=== PATIENT | female | born 1995 | race Two or more races ===

== ENCOUNTER 2024-11-11 18:06 | Emergency (ER) | payer OTHER ==
[~2024-11-11] VITALS: Ht 160 cm; Wt 56.7 kg
[2024-11-11] MEDS ORDERED: FAMOtidine 10 MG/ML (4ML VIAL) IV ONE (18:45)
[2024-11-11] MEDS ORDERED: ACETAMINOPHEN 325 MG TABLET PO ONE (18:45)
[2024-11-11] MEDS ORDERED: ONDANSETRON HCL 2 MG/ML VIAL IV ONE (18:45)
[2024-11-11] MEDS ORDERED: 0.9 % SODIUM CHLORIDE 1,000 ML IV ONE (18:45)
[2024-11-11] MEDS ORDERED: ACETAMINOPHEN 500 MG GEL..CAP PO ONE (19:02)
[2024-11-11] MEDS ORDERED: ONDANSETRON HCL 2 MG/ML VIAL ONE (19:02)
[2024-11-11] MEDS ORDERED: FAMOTIDINE/PF 20 MG/2 ML VIAL ONE (19:02)
[2024-11-11 19:36] LABS: HEMATOCRIT 37.7 % (36.0-45.00); MEAN CELL VOLUME 87.3 fL (80.00-100.00); MEAN CORPUSCULAR HEMOGLOBIN 30.1 pg (27.00-32.0); MEAN CORPUSCULAR HGB CONC 34.5 g/dl (32.0-36.0); PLATELET COUNT 215 K/uL (150-450); RED BLOOD COUNT 4.32 M/uL (4.00-6.00); RED CELL DISTRIBUTION WIDTH 13.6 % (11.5-14.5)
[2024-11-11] MEDS ORDERED: ZOFRAN8 MG PO (20:29)
[2024-11-11] MEDS ORDERED: PROTONIX40 MG PO (20:29)
== END 2024-11-11 21:12 | disposition home or self-care (01) ==
LOC: ER 18:07
PROVIDERS: General Practice
DX: O21.0 Mild hyperemesis gravidarum (principal); Z3A.23 23 weeks gestation of pregnancy; Z20.822 Contact with and (suspected) exposure to COVID-19; Z88.8 Allergy status to other drugs, medicaments and biological substances

== ENCOUNTER 2024-11-29 20:02 | Outpatient (CLI) | payer OTHER ==
[~2024-11-29] VITALS: Ht 154.9 cm; Wt 55.8 kg
[2024-11-29 18:59] VITALS: BP 119/80
[~2024-11-29 20:02] MED LIST: PROTONIX40 MG PO; ZOFRAN8 MG PO
[2024-11-29] MEDS ORDERED: FOLIC ACID1 MG (20:14)
[2024-11-29] MEDS ORDERED: RINGERS SOLUTION,LACTATED 1,000 ML IV SCH (20:15)
[2024-11-29] MEDS ORDERED: MAGNESIUM HYDROXIDE 30 ML BLIST.PACK PO ONE (20:15)
[2024-11-29] MEDS ORDERED: PRENATAL TABLE1 EAC1 (20:16)
[2024-11-29 23:10] VITALS: BP 107/71
[2024-11-30 03:11] VITALS: BP 96/61
[2024-11-30] MEDS ORDERED: BISACODYL 10 MG/SUPP.RECT SUPP.RECT RECTAL SCH (06:00)
[2024-11-30 06:22] VITALS: BP 96/60; O2SAT 99
[2024-11-30] MEDS ORDERED: MAGNESIUM HYDROXIDE 30 ML BLIST.PACK PO ONE (08:00)
[2024-11-30] MEDS ORDERED: LACTULOSE 20 G/30 ML BLIST.PACK PO ONE (08:00)
[2024-11-30] MEDS ORDERED: MINERAL OIL 30 ML BLIST.PACK PO ONE (08:00)
[2024-11-30 11:38] VITALS: BP 99/67
[2024-11-30 13:25] VITALS: BP 99/67
== END 2024-11-30 14:25 | disposition home or self-care (01) ==
LOC: OBS/DEL 20:02
PROVIDERS: ATTEND Obstetrics & Gynecology
DX: O26.892 Other specified pregnancy related conditions, second trimester (principal); K59.00 Constipation, unspecified; Z3A.25 25 weeks gestation of pregnancy

== ENCOUNTER 2024-12-28 12:03 | Outpatient (CLI) | payer OTHER ==
[~2024-12-28 12:03] MED LIST changes: +FOLIC ACID1 MG; +PRENATAL TABLE1 EAC1
== END 2024-12-28 12:39 | disposition home or self-care (01) ==
LOC: NST 12:03
PROVIDERS: ATTEND Obstetrics & Gynecology
DX: Z34.83 Encounter for supervision of other normal pregnancy, third trimester (principal)

== ENCOUNTER 2025-03-01 13:07 | Inpatient (IN) | payer OTHER ==
[~2025-03-01] VITALS: Ht 154.9 cm; Wt 64.0 kg
[2025-03-05 19:00] VITALS: BP 131/66
[2025-03-05] MEDS ORDERED: RINGERS SOLUTION,LACTATED 1,000 ML IV SCH (19:45)
[2025-03-05] MEDS ORDERED: MORPHINE SULFATE 4 MG/ML CARTRIDGE IV PRN (19:45)
[2025-03-05] MEDS ORDERED: MAGNESIUM250 MG PO (19:50)
[2025-03-05 20:14] LABS: BASO % 0.3 % (0.1-1.2); EOS # 0.01 (0.04-0.54); EOS % 0.1 % (0.7-7.0); LYMPH # 1.66 (1.18-3.74); LYMPH % 14.0 % (19.3-53.1); MEAN PLATELET VOLUME 10.20 fl (9.4-12.4); MONO # 0.75 (0.24-0.82); MONO % 6.3 % (4.7-12.5); NEUT # 9.30 (1.56-6.13); NEUT % 78.7 % (34.0-71.1); RED CELL DISTRIBUTION WIDTH 14.0 % (11.6-14.4)
[2025-03-05 20:40] LABS: INR 1.05
[2025-03-05 20:44] LABS: ALT/SGPT 19.0 U/L (12-78); AST/SGOT 11.0 U/L (15-37); BILIRUBIN TOTAL 0.21 mg/dL (0.3-1.2); BUN CREA RATIO 13.0 (7.0-25.0); CREATININE SERUM 0.56 mg/dL (0.55-1.02); GFR 127.11; GLOBULINA 3.5 G/DL (2.4-3.5); GLUCOSE FASTING 71.0 mg/dL (65-100); OSMOLALITY SERUM 274.0 MOSM/KG (275-295)
[2025-03-05 23:36] VITALS: BP 106/80
[2025-03-06] VITALS (8 sets, daily range): BP systolic 104–126; BP diastolic 50–79; O2SAT 100
[2025-03-06] MEDS ORDERED: OXYTOCIN 500 ML IV ONE (01:30)
[2025-03-06] MEDS ORDERED: ONDANSETRON HCL 2 MG/ML VIAL ONE (03:33)
[2025-03-06] MEDS ORDERED: ONDANSETRON HCL 2 MG/ML VIAL IV ONE (04:00)
[2025-03-06] MEDS ORDERED: ERYTHROMYCIN BASE OPHT 1GM EACH TUBE OP ONE ×2 (04:52→06:15)
[2025-03-06] MEDS ORDERED: OXYTOCIN 20 UNITS/1000ML RL PIGGYBAG IV ONE (04:53)
[2025-03-06] MEDS ORDERED: CHLORHEXIDINE GLUCONATE 120 ML BOTTLE TOP ONE (04:53)
[2025-03-06] MEDS ORDERED: LIDOCAINE HCL 1% 10ML VIAL ONE (04:53)
[2025-03-06] MEDS ORDERED: CHLORHEXIDINE GLUCONATE 120 ML BOTTLE TP SCH (06:00)
[2025-03-06] MEDS ORDERED: OXYTOCIN 1,000 ML IV SCH (06:00)
[2025-03-06] MEDS ORDERED: LIDOCAINE HCL 1% 10ML VIAL IJ ONE (06:15)
[2025-03-06] MEDS ORDERED: PNV,CALCIUM 72/IRON/FOLIC ACID 1 TAB TABLET PO SCH (09:00)
[2025-03-06] MEDS ORDERED: DOCUSATE SODIUM 100MG CAP PO SCH (09:00)
[2025-03-06 09:20] LABS: BASO % 0.2 % (0.1-1.2); EOS # 0.00 (0.04-0.54); EOS % 0.0 % (0.7-7.0); LYMPH # 0.77 (1.18-3.74); LYMPH % 3.2 % (19.3-53.1); MEAN PLATELET VOLUME 10.10 fl (9.4-12.4); MONO # 0.85 (0.24-0.82); MONO % 3.6 % (4.7-12.5); NEUT # 21.97 (1.56-6.13); NEUT % 92.4 % (34.0-71.1); RED CELL DISTRIBUTION WIDTH 13.8 % (11.6-14.4)
[2025-03-07 01:00] VITALS: BP 100/61
[2025-03-07 08:10] VITALS: BP 91/65
[2025-03-07 15:56] VITALS: BP 120/80
[2025-03-08 02:04] VITALS: BP 117/80
[2025-03-08 08:06] VITALS: BP 112/79
== END 2025-03-08 12:51 | disposition home or self-care (01) | DRG 807 ==
LOC: LDR 03-05 19:37 → OB/GYN 03-06 06:23 → LDR 03-07 14:30 → OB/GYN 03-08 12:51
PROVIDERS: Obstetrics & Gynecology Gynecology; ADMIT Obstetrics & Gynecology; ATTEND Obstetrics & Gynecology
PROC: 4A1HXCZ Monitoring of Products of Conception, Cardiac Rate, External Approach (ICD-10-PCS; 2025-03-05)
PROC: 10E0XZZ Delivery of Products of Conception, External Approach (ICD-10-PCS; principal; 2025-03-06)
PROC: 0W8NXZZ Division of Female Perineum, External Approach (ICD-10-PCS; 2025-03-06)
PROC: 0UQG7ZZ Repair Vagina, Via Natural or Artificial Opening (ICD-10-PCS; 2025-03-06)
DX: O71.4 Obstetric high vaginal laceration alone (principal); Z37.0 Single live birth; Z3A.39 39 weeks gestation of pregnancy

== ENCOUNTER 2025-03-05 12:05 | Outpatient (CLI) | payer OTHER ==
[2025-03-05] MEDS ORDERED: MAGNESIUM250 MG PO (19:50)
== END 2025-03-05 12:55 | disposition home or self-care (01) ==
LOC: NST 12:05
PROVIDERS: ATTEND Obstetrics & Gynecology Gynecology
DX: Z34.83 Encounter for supervision of other normal pregnancy, third trimester (principal)